=== PATIENT | male | born 1960 | race Hispanic/Latino ===

== ENCOUNTER 2021-04-24 16:06 | Emergency (ER) | payer OTHER, MEDICARE ==
[~2021-04-24] VITALS: Ht 167.6 cm; Wt 74.8 kg
[2021-04-24 16:40] LABS: BASOPHILS % (AUTO) 0.9 % (0.0-5.0); EOSINOPHILS % (AUTO) 5.9 % (0.0-8.0); HEMATOCRIT 43.3 % (42-54); LYMPHOCYTES % (AUTO) 25.4 % (21.0-51.0); MEAN CORPUSCULAR HGB CONC 34.9 g/dL (32.0-36.0); MEAN CORPUSCULAR VOLUME 85.9 fL (79-99); MONOCYTES % (AUTO) 9.9 % (3.0-13.0); NEUTROPHILS % (AUTO) 57.5 % (40.0-77.0); PLATELET COUNT (AUTO) 270 K/uL (130-400); RED BLOOD CELL COUNT(AUTO) 5.04 MIL/uL (4.50-6.20); RED CELL DISTRIBUTION WIDTH 12.8 % (11.0-15.5); WHITE BLOOD COUNT (AUTO) 7.6 K/uL (4.8-10.8)
[2021-04-24 16:51] LABS: CARBON DIOXIDE 30 mmol/L (21-32); CHLORIDE 103 mmol/L (101-111); CREATININE 0.9 mg/dL (0.5-1.5); GLOMERULAR FILTR. RATE CALC 92 mL/min (>60); GLUCOSE,RANDOM 84 mg/dL (70-105); INR 1.05 (0.85-1.15); POTASSIUM 3.3 mmol/L (3.5-5.1); PROTHROMBIN TIME 11.4 SEC (9.6-11.6); SODIUM SERUM 141 mmol/L (136-145); UREA NITROGEN, BLOOD 12 mg/dL (7-18)
[2021-04-24 16:52] LABS: PARTIAL THROMBOPLASTIN TIME 25.7 SEC (26.3-35.5)
[2021-04-24 17:00] LABS: ALANINE AMINOTRANSFERASE 22 U/L (12-78); ALBUMIN 4.7 g/dL (3.5-5.0); ALCOHOL, BLOOD < 3 mg/dL (0-10); ASPARTATE AMINOTRANSFERASE 15 U/L (10-37); BILIRUBIN,TOTAL 0.3 mg/dL (0.2-1.0); CREATINE KINASE, TOTAL 168 U/L (21-232); LDL DIRECT 81 mg/dL (0-99); TOTAL PROTEIN, SERUM 8.5 g/dL (6.0-8.3)
[2021-04-24 17:01] LABS: ACETAMINOPHEN < 1 mcg/mL (10-29); SALICYLATE < 2.8 mg/dL (2.8-20.0)
[2021-04-24 17:04] LABS: B-TYPE NATRIURETIC PEPTIDE 26 pg/mL (0-100)
[2021-04-24 17:25] LABS: APPEARANCE,URINE Clear (CLEAR); BILIRUBIN,URINE Negative (NEGATIVE); COLOR,URINE Yellow (YELLOW); GLUCOSE, URINE (UA) Negative (NEGATIVE); KETONES,URINE Negative (NEGATIVE); LEUKOCYTE ESTERASE ,URINE Negative (NEGATIVE); NITRATE,URINE Negative (NEGATIVE); OCCULT BLOOD,URINE Negative (NEGATIVE); PH,URINE 8.5 (5.0-8.0); PROTEIN,URINE Negative (NEGATIVE)
[2021-04-24 17:33] LABS: AMPHET/METH SCREEN,URINE NEGATIVE (NEGATIVE); BARBITURATE SCREEN, URINE NEGATIVE (NEGATIVE); BENZODIAZEPINES SCREEN,URINE NEGATIVE (NEGATIVE); CANNABINOID SCREEN,URINE NEGATIVE (NEGATIVE); COCAINE SCREEN,URINE NEGATIVE (NEGATIVE); OPIATE SCREEN,URINE NEGATIVE (NEGATIVE); PHENCYCLIDINE SCREEN,URINE NEGATIVE (NEGATIVE)
[2021-04-24] MEDS ORDERED: IOHEXOL-350 75 ML VIAL IV ONE ×2 (17:49→18:26)
[2021-04-24] MEDS ORDERED: QUET300T2 PO (18:01)
[2021-04-24] MEDS ORDERED: PRAV40TA3 PO (18:02)
[2021-04-24] MEDS ORDERED: AMLO-258 PO (18:04)
[2021-04-24] MEDS ORDERED: VITAD50000 PO (18:04)
[2021-04-24] MEDS ORDERED: LISI1TAB51 PO (18:09)
[2021-04-24] MEDS ORDERED: FLUT16H NASAL (18:09)
[2021-04-24] MEDS ORDERED: CETI10TA57 PO (18:10)
[2021-04-24] MEDS ORDERED: VITA400C79 PO (18:12)
[2021-04-24] MEDS ORDERED: SITA1TAB2 PO (18:12)
[2021-04-24] MEDS ORDERED: FAMO20TA8 PO (18:13)
[2021-04-24] MEDS ORDERED: PROP1DRO4 OP (18:16)
[2021-04-24] MEDS ORDERED: BETA15CR6 TP (18:17)
[2021-04-24] MEDS ORDERED: LORA10TA7 PO (18:18)
[2021-04-24] MEDS ORDERED: POLY17PO4 PO (18:19)
[2021-04-24] MEDS ORDERED: CLOT15CR5 TP (18:21)
[2021-04-24] MEDS ORDERED: TRIA1KT.2 TP (18:24)
[2021-04-24 21:05] VITALS: BP 126/74
== END 2021-04-24 21:14 | disposition home or self-care (01) ==
LOC: EDH 16:06
DX: R26.9 Unspecified abnormalities of gait and mobility (principal); F80.9 Developmental disorder of speech and language, unspecified; R53.1 Weakness; E11.9 Type 2 diabetes mellitus without complications; E78.00 Pure hypercholesterolemia, unspecified; I10 Essential (primary) hypertension; Z79.899 Other long term (current) drug therapy; Z79.84 Long term (current) use of oral hypoglycemic drugs
CPT/HCPCS: 36415; 70450; 70496; 70498; 71045; 80053; 80305; 81003; 82550; 83721; 83880; 84484; 85025; 85610; 85730; 93005; 99285; G0481; Q9967 ×2